=== PATIENT | female | born 2005 | race Caucasian/White ===

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

== ENCOUNTER 2023-05-27 14:41 | Emergency (ER) | payer OTHER ==
[~2023-05-27] VITALS: Ht 165.1 cm; Wt 55.3 kg
[~2023-05-27 14:41] MED LIST changes: +AUG875 PO
[2023-05-27 15:26] VITALS: BP_SYST 117; PULSE 99; RESP 16; TEMP 97.7; O2SAT 97
== END 2023-05-27 18:30 | disposition home or self-care (01) ==
LOC: SED 14:41
DX: S90.211A Contusion of right great toe with damage to nail, initial encounter (principal); Z79.899 Other long term (current) drug therapy; X58.XXXA Exposure to other specified factors, initial encounter; Y93.89 Activity, other specified; Y92.89 Other specified places as the place of occurrence of the external cause; Y99.8 Other external cause status
CPT/HCPCS: 99284